=== PATIENT | female | born 1975 ===

== ENCOUNTER 2017-11-18 23:14 | Emergency (ER) | payer SELFPAY ==
[2017-11-18 23:24] VITALS: BMI 35.9
[2017-11-18 23:25] VITALS: BP 127/84; O2SAT 99
[2017-11-18] MEDS ORDERED: Sodium Chloride 0.9% 1,000 ML IV STA (23:54)
[2017-11-18] MEDS ORDERED: DiphenhydrAMINE 50 mg/ml Inj IV STA (23:55)
[2017-11-19] MEDS ORDERED: DiphenhydrAMINE 50 mg/ml Inj ONE (00:09)
--- NOTE | 2017-11-19 00:44 | ED PDOC ---
HPI: General Adult Time Seen by Provider: 11/18/17 23:37 Chief Complaint (Nursing): Fever Chief Complaint (Provider): Rash History Per: Patient History/Exam Limitations: no limitations Onset/Duration Of Symptoms: Days (4) Have you had recent travel within the past 21 days to any of the following countries: [place], [place], [place] or [place]?: No Current Symptoms Are (Timing): Still Present Additional Complaint(s): 42yo female, with history of hypertnesion and currently on phentermine for weight loss, comes to ER for evaluation of fever and rash, present for the past 4 days. She states the fever started 4 days ago and was followed with a pruritic rash to chest and face. Patients states she had the chicken pox previously when she was 15 years old. She currently reports associated bodyaches and generalized malaise but deneis any nausea, vomiting. She does report a mild headache but deneis any photophobia. Patient denies taking any medications for her symptoms. Past Medical History Reviewed: Historical Data, Nursing Documentation, Vital Signs Vital Signs: Last Vital Signs Temp 99.3 F 11/19/17 01:25 Pulse 90 11/19/17 01:53 Resp 16 11/19/17 01:53 BP 127/84 11/18/17 23:30 Pulse Ox 99 11/19/17 02:37 - Medical History PMH: No Chronic Diseases - Surgical History Surgical History: No Surg Hx - Family History Family History: States: No Known Family Hx - Home Medications Home Medications: Ambulatory Orders Medication Instructions Recorded Acyclovir [Zovirax] 800 mg PO 5XD #35 tab 11/19/17 - Allergies Allergies/Adverse Reactions: Allergies Allergy/AdvReac Type Severity Reaction Status Date / Time No Known Allergies Allergy Verified 11/18/17 23:38 Review of Systems ROS Statement: Except As Marked, All Systems Reviewed And Found Negative Constitutional: Positive for: Fever, Malaise. Negative for: Chills Cardiovascular: Negative for: Chest Pain Respiratory: Negative for: Shortness of Breath Gastrointestinal: Negative for: Nausea, Vomiting Skin: Positive for: Rash Neurological: Positive for: Headache. Negative for: Other (photophobia) Physical Exam - Reviewed Nursing Documentation Reviewed: Yes Vital Signs Reviewed: Yes - Physical Exam Appears: Positive for: Non-toxic, No Acute Distress Head Exam: Positive for: ATRAUMATIC, NORMAL INSPECTION, NORMOCEPHALIC Skin: Positive for: Warm, Dry, Rash (diffuse vesicular rash noted to face, trunk and extremities) Eye Exam: Positive for: EOMI, PERRL Neck: Positive for: Normal (no meningismus), Painless ROM, Supple Cardiovascular/Chest: Positive for: Regular Rate, Rhythm Respiratory: Positive for: Normal Breath Sounds Gastrointestinal/Abdominal: Positive for: Normal Exam, Soft. Negative for: Tenderness Back: Positive for: Normal Inspection Extremity: Positive for: Normal ROM Neurologic/Psych: Positive for: Alert, Oriented. Negative for: Motor/Sensory Deficits - Laboratory Results Result Diagrams: 11/19/17 00:15 11/19/17 00:15 - ECG O2 Sat by Pulse Oximetry: 99 (RA) Pulse Ox Interpretation: Normal Medical Decision Making Medical Decision Making: Impression: 42yo female with varicella Plan: -- Labs -- Urinalysis -- Tylenol 975mg PO -- Benadryl 50mg IV -- Toradol 30mg IV -- IV Fluids -- Rapid Flu -- Stevens 0234 Labs reviewed with no clinically significant abnormalities other than leukopenia , consistent with viral illness. Patient given prescription for acyclovir and instructed to take Tylenol/Motrin as needed for fever. Patient given return precautions as well and is stable upon discharge home. Diagnosis: Varicella Scribe Attestation: Documented by Kitty Sánchez, acting as a scribe for Gerardo Nagel MD. Provider Scribe Attestation: All medical record entries made by the Scribe were at my direction and personally dictated by me. I have reviewed the chart and agree that the record accurately reflects my personal performance of the history, physical exam, medical decision making, and the department course for this patient. I have also personally directed, reviewed, and agree with the discharge instructions and disposition. Disposition - Clinical Impression Clinical Impression: Varicella - Disposition Disposition: Routine/Home Disposition Time: 02:34 Condition: STABLE Prescriptions: Acyclovir [Zovirax] 800 mg PO 5XD #35 tab Instructions: Chickenpox, Viral Exanthem Forms: [facility] (Nepali) Print Language: ZAMBIAN
[2017-11-19 01:18] LABS: SQUAMOUS EPITHIAL 1 /hpf (0-5); URINE BACTERIA RARE (<OCC); URINE BILIRUBIN NEGATIVE (NEGATIVE); URINE BLOOD SMALL (NEGATIVE); URINE CLARITY SLIGHTY-CLOUDY (Clear); URINE COLOR YELLOW (YELLOW); URINE GLUCOSE (UA) NEG (Normal); URINE LEUKOCYTE ESTERASE NEG Leu/uL (Negative); URINE PROTEIN NEGATIVE (NEGATIVE); URINE UROBILINOGEN 0.2-1.0 mg/dL (0.2-1.0)
[2017-11-19 01:25] LABS: BASO % 0.9 % (0.0-2.0); HEMOGLOBIN 13.5 g/dL (12.0-16.0); LYMPH # 0.9 K/uL (1.0-4.3); MEAN CELL VOLUME 83.6 fl (81.0-99.0); MEAN CORPUSCULAR HEMOGLOBIN 27.8 pg (27.0-31.0); MEAN CORPUSCULAR HGB CONC 33.3 g/dL (33.0-37.0); MEAN PLATELET VOLUME 10.8 fl (7.2-11.7); MONO # 0.2 K/uL (0.0-0.8); MONO % 7.3 % (0.0-10.0); NEUT # 1.4 K/uL (1.8-7.0); NEUT % 54.8 % (50.0-75.0); NRBC % 0.1 % (0.0-0.0); RBC 4.84 Mil/uL (3.80-5.20); RED CELL DISTRIBUTION WIDTH 14.7 % (11.5-14.5); WHITE BLOOD COUNT 2.5 K/uL (4.8-10.8)
[2017-11-19 01:29] LABS: ALB/GLOB RATIO 1.2 (1.0-2.1); ALBUMIN 4.1 g/dL (3.5-5.0); ALT/SGPT 71 U/L (9-52); AST/SGOT 63 U/L (14-36); BLOOD UREA NITROGEN 8 mg/dl (7-17); CALCIUM 9.1 mg/dL (8.4-10.2); GFR AFRICAN-AMERICAN > 60; GFR NON-AFRICAN AMERICAN > 60
[2017-11-19 01:53] VITALS: PULSE 90; RESP 16; TEMP 99.3
== END 2017-11-19 02:55 | disposition home or self-care (01) ==
LOC: H.ER 23:14
DX: B01.9 Varicella without complication (principal)
CPT/HCPCS: 80053; 81003; 81025; 85025; 85651; 86308; 87804; 96360; 99285; J1200; J1885; J7030